=== PATIENT | male | born 1960 | race Caucasian/White ===

== ENCOUNTER 2017-02-01 09:35 | Observation (INO) | payer OTHER ==
[~2017-02-01] VITALS: Ht 175.3 cm; Wt 122.7 kg
[2017-02-01] VITALS (8 sets, daily range): BP systolic 102–124; BP diastolic 64–86; PULSE 77–89; RESP 15–22; O2SAT 91–97
--- NOTE | 2017-02-01 09:36 | ED.REPORT ---
HPI-Syncope Date of Service February 01, 2017 ED Provider: Dr. Syed 56 y/o male with a hx of nephritis presents to the ED via EMS due to a syncopal episode while at work today. Pt has been experiencing congestion at night for a few months. He reports productive cough with clear sputum, SOB and wheezing at night for a couple of days.The pt took Claritin and Mucinex which seemed to improve his sx until yesterday. Today, the pt lost consciousness after exerting himself today. His brother saw him faint and called the ambulance. The pt recalls feeling lightheaded and noted tachycardia before LOC. He denies chest pain and SOB. Currently, he feels okay but is experiencing generalized weakness and malaise. Nursing Notes Stated Complaint: SYNCOPE Chief Complaint: General Complaint Nursing Notes Reviewed: Yes Allergies: Coded Allergies: crab (Verified Allergy, Unknown, Rash,Itching,SOB, 02/01/17) shrimp (Verified Allergy, Unknown, Rash,Itching,SOB, 02/01/17) Scheduled Cholecalciferol (Vitamin D3) (Vitamin D3) 2,000 Unit Capsule 2,000 UNIT PO DAILY Latanoprost (Latanoprost) 2.5 Ml Drops 1 GTT BOTH_EYES HS Triamcinolone Acetonide (Nasacort) 10.8 Ml Harlan 10.8 ML NS DAILY General Time Seen by Provider: 09:36 Chief Complaint Lost consciousness Syncope Description: Single episode Hx Obtained From: Patient Arrived By: Ambulance Onset Occurred: Just prior to arrival Context of Onset: Occurred at work Symptom Duration: Since onset Severity: Current: No pain currently Severity: Maximum: No pain Recent Healthcare: No recent doctor visit Similar Sx Previous: No Past Medical History Past Medical History nephritis Past Surgical History none reported Smoking History Never Smoker Social History Alcohol Use: "Social" Drug Use: THC (occasional ) Other Social History: Good social support Ambulatory Status Independent Review of Systems Constitutional: Reports: Malaise, Weakness - generalized Respiratory: Reports: Prod cough, clear, Wheezing, Denies: Shortness of breath Cardiovascular: Reports: Palpitations, Denies: Chest pain Neurologic: Reports: Lightheaded, Syncope Complete sys rev & neg: except as marked. Additional Review of Systems Allergy / Immune: Reports: Rhinorrhea Physical Exam Initial Vital Signs Vital Signs (First) Date Time Temp Pulse Resp B/P Pulse Ox O2 Delivery O2 Flow Rate FiO2 5/7/17 09:34 36.4 77 18 104/64 91 Room Air Initial VS: Reviewed Head / Eyes: Atraumatic, Normocephalic, PERRL ENT: Mucous membranes moist, Conjunctiva normal, No scleral icterus Neck: Supple, Non-tender, Full range of motion Abdomen / GI: Soft, Non-tender, No guarding, No rebound, No distention Upper Extremities: Vascular intact, Neuro intact, No swelling, No tenderness Skin: Warm, Dry, No cyanosis General/Constitutional: Awake, Alert, No acute distress, Cooperative Appearance / Presentation: Positive: Obese Disheveled. Respiratory / Chest: Atraumatic, Breath sounds NL, Breath sounds = bilat, No respiratory distress, No rales, No rhonchi, No wheezing Cardiovascular: Heart rate NL, Regular rhythm, Heart sounds NL, No gallop, No murmurs Lower Extremity / Pelvis / MS: Atraumatic, Full range of motion Neurologic: Oriented X3, Speech NL, No motor deficits, No sensory deficits Interpretation & Diagnostics Lab Results Interpretation Result Diagram: 02/01/17 1015 02/01/17 1015 Test 02/01/17 10:15 White Blood Count 7.7th/mm3 (3.8-10.1) Red Blood Count 4.81mil/mm3 (4.40-5.80) Hemoglobin 16.0g/dL (13.8-17.2) Hematocrit 45.8% (41.0-50.0) Mean Corpuscular Volume 95.2fL (81-100) Mean Corpuscular Hemoglobin 33.3pg (27.0-35.0) Mean Corpuscular Hemoglobin Concent 34.9% (32.0-37.0) Red Cell Distribution Width 12.8% (12.3-15.4) Platelet Count 242bil/L (150-400) Neutrophils (%) (Auto) 75.5% (40-74) Lymphocytes (%) (Auto) 12.5% (14-46) Monocytes (%) (Auto) 11.1% (4-12) Eosinophils (%) (Auto) 0.4% (0-5) Basophils (%) (Auto) 0.4% (0-3) D-Dimer 0.63mg/L FEU (<0.50) Sodium Level 131mEq/L (134-144) Potassium Level 3.9mEq/L (3.5-5.2) Chloride Level 96mEq/L (97-108) Carbon Dioxide Level 16mmol/L (18-29) Blood Urea Nitrogen 19mg/dL (6-24) Creatinine 1.48mg/dL (0.76-1.27) Estimat Glomerular Filtration Rate 52mL/min (>59) Glucose Level 135mg/dL (60-99) Calcium Level 8.3mg/dL (8.5-10.1) Magnesium Level 1.9mg/dL (1.6-2.6) Total Bilirubin 0.2mg/dL (0.0-1.2) Aspartate Amino Transf (AST/SGOT) 25U/L (0-50) Alanine Aminotransferase (ALT/SGPT) 22U/L (0-44) Alkaline Phosphatase 76U/L (25-150) Troponin T 0.010ug/L (0.0-0.011) Pro-B-Type Natriuretic Peptide 137.1pg/mL (0-210) Total Protein 7.3g/dL (6.4-8.4) Albumin 3.8g/dL (3.4-5.0) Hold Burks Top Tube Received (Received) ECG Interpretation ECG Interpretation: Normal Sinus rhythm. Rate 79 Time: 09:45 Interpreted by: ED physician X-Ray Chest Interpretation Chest Xray Interpretation: IMPRESSION: No acute process. Dictated by: Dayana Damon M.D. on 02/01/2017 at 10:15 Approved by: Dayana Damon M.D. on 02/01/2017 at 10:16 View: Portable, 1 view Interpretation / Wet Read by: Interpret - Radiologist CT Head Interpretation IMPRESSION: No acute intracranial process. Sinusitis. Dictated by: Dayana Damon M.D. on 02/01/2017 at 12:01 Approved by: Dayana Damon M.D. on 02/01/2017 at 12:02 Study: Head CT no contrast Interpretation / Wet Read by: Interpret - Radiologist CT Chest Interpretation IMPRESSION: 1. No acute process. No pulmonary embolus. Dictated by: Dayana Damon M.D. on 02/01/2017 at 12:02 Approved by: Dayana Damon M.D. on 02/01/2017 at 12:04 Study type: Chest CT w contrast Interpretation / Wet Read by: Interpret - Radiologist Re-Eval/Medical Decision Med Decision/Clinical Course Discussed case with cardiology, the symptoms are concerning for some sort of a tachydysrhythmia that prompted syncope. Patient will be admitted for serial troponins and further observation. Re-Evaluation/Progress #1: Time of Eval: 12:15 Re-Evaluation/Progress Note: Rechecked pt. Pt reports some improvement. Informed the pt the plan to discuss his case with a medical claims representative. Re-Evaluation/Progress #2: Time of Eval: 13:03 Re-Evaluation/Progress Note: Rechecked pt. Discussed lab, imaging results and plan to admit. Pt understands and agrees with the plan for admission. All questions addressed. Consultation #1: Referral / Consult Name: Estephania Guerra MD Consulted With: Cardiology Call Returned at: 12:25 Bridge Gang Worker: Agrees with eval, Agrees with plan Consultation #2: Referral / Consult Name: Cinthia Wen DO Consulted With: Hospitalist Call Returned at: 13:42 Bridge Gang Worker: Will see patient, Agrees with eval, Agrees with plan, Accepts admit Counseled Regarding: Diagnosis, Lab results, Need for admission Discharge & Departure Impression: Primary Impression: Syncope Syncope type: unspecified Qualified Code: R55 - Syncope and collapse Disposition: ADMITTED TO HOSPITAL Discharge Condition All VS Reviewed: Yes Scribe Attestation Portions of this note were transcribed by Ivette Farley. I, , personally performed the history, physical exam and medical decision-making;I reviewed and confirmed the accuracy of the information in the transcribed note. Signed by Jah Barbosa. 02/01/17 01:42 Jamari Syed DO February 01, 2017 09:36 Ivette Farley February 01, 2017 09:50
[2017-02-01] MEDS ORDERED: 0.9% Sodium Chloride 1,000 ML IV ONE (09:52)
--- NOTE | 2017-02-01 10:18 | DRSVH ---
PROCEDURE: X-RAY CHEST ONE VIEW, PORTABLE ([id number]) INDICATIONS: sob, syncope TECHNIQUE: One view of the chest was acquired. COMPARISON: None. FINDINGS: Surgical changes and devices: None. Lungs and pleura: No pleural effusions or pneumothorax. Lungs are clear. Mediastinum: Mediastinal contours appear normal. Heart size is normal. Bones and chest wall: No suspicious bony lesions. Overlying soft tissues appear unremarkable. IMPRESSION: No acute process. Dictated by: Dayana Damon M.D. on 02/01/2017 at 10:15 Approved by: Dayana Damon M.D. on 02/01/2017 at 10:16
[2017-02-01 10:25] LABS: BASOPHILS % (AUTO) 0.4 % (0-3); EOSINOPHILS % (AUTO) 0.4 % (0-5); MONOCYTES % (AUTO) 11.1 % (4-12); Mean Corpuscular Hemoglobin 33.3 pg (27.0-35.0); Mean Corpuscular Volume 95.2 fL (81-100); NEUTROPHILS % (AUTO) 75.5 % (40-74); Platelet Count 242 bil/L (150-400)
[2017-02-01 10:55] LABS: TROPONIN T 0.01 ug/L (0.0-0.011)
[2017-02-01 11:06] LABS: Magnesium 1.9 mg/dL (1.6-2.6)
--- NOTE | 2017-02-01 12:03 | DRSVH ---
PROCEDURE: CT BRAIN WITHOUT CONTRAST ([id number]) INDICATIONS: syncope TECHNIQUE: Noncontrast 4.5 mm thick angled axial sections acquired from the foramen magnum to the vertex, with c oronal reformats. COMPARISON: None. FINDINGS: Image quality: Excellent. CSF spaces: Basal cisterns are patent. No extra-axial fluid collections. The ventricles are symmet brandin in size and shape. Brain: No intracranial bleeds or masses. There is cerebral volume loss for age, with resultant vent ricular and sulcal prominence. There are periventricular and deep white matter chronic small vessel ischemic changes. There is intracranial internal carotid artery atherosclerosis. Skull and face: Calvarium and visualized facial bones appear intact, without suspicious lesions. Sinuses: Severe right and moderate left maxillary sinus mucosal thickening. Severe bilateral ethmoid air cell mucosal thickening. Mastoids clear. IMPRESSION: No acute intracranial process. Sinusitis. Dictated by: Dayana Damon M.D. on 02/01/2017 at 12:01 Approved by: Dayana Damon M.D. on 02/01/2017 at 12:02
--- NOTE | 2017-02-01 12:05 | DRSVH ---
PROCEDURE: CT ANGIO CHEST PULMONARY EMBOLISM ([id number]) INDICATIONS: syncope elevated ddimer TECHNIQUE: After the administration of intravenous contrast, 2 mm thick sections acquired from the pulmonary api debo to the posterior costophrenic angles. 3-dimensional maximum intensity projection (MIP) coronal a nd sagittal reformats were then acquired through the thorax. For radiation dose reduction, the follo wing was used: automated exposure control, adjustment of mA and/or kV according to patient size. COMPARISON: None. FINDINGS: Image quality: Excellent. Pulmonary arteries: Pulmonary arteries are normal in size, and demonstrate no intraluminal filling d efects to suggest central pulmonary embolism. Lungs and pleura: Lungs are clear. No pleural effusions or pneumothorax. Central and peripheral ai rways are patent. Mediastinum: Heart size is normal, without pericardial effusion. No mediastinal or hilar adenopathy . Thoracic aorta is normal in caliber and enhancement. Esophagus is normal in caliber, without hiat al hernia. Bones and chest wall: No suspicious bony lesions. Ribs and thoracic spine appear intact throughout. Thyroid gland is within normal limits. No axillary or supraclavicular adenopathy. Abdomen: Visualized upper abdominal solid organs appear normal in the early arterial phase of enhanc ement. IMPRESSION: 1. No acute process. No pulmonary embolus. Dictated by: Dayana Damon M.D. on 02/01/2017 at 12:02 Approved by: Dayana Damon M.D. on 02/01/2017 at 12:04
[2017-02-01] MEDS ORDERED: TRIA10.8 NS (13:29)
[2017-02-01] MEDS ORDERED: LATA2.5D6 BOTH_EYES (13:29)
[2017-02-01] MEDS ORDERED: CHOL200047 PO (13:29)
[2017-02-01] MEDS ORDERED: Ondansetron 2 mg/mL 2 mL Inj IVPUSH PRN (13:55)
[2017-02-01] MEDS ORDERED: Alum-Mag Hydrox-Simeth 30 mL Suspension PO PRN (13:55)
[2017-02-01] MEDS ORDERED: Polyethylene Glycol (PEG) 17 Gm Powder PO PRN (13:55)
[2017-02-01] MEDS: 0.9% Sodium Chloride 1,000 ML IV SCH ×2 (16:13→23:54)
[2017-02-01 16:45] LABS: Creatine Kinase 146 U/L (21-232)
[2017-02-01 16:46] LABS: TROPONIN T < 0.010 ug/L (0.0-0.011)
[2017-02-01] MEDS: Heparin 5,000 Unit/mL Inj SUBQ SCH (17:05)
[2017-02-01] MEDS ORDERED: Codeine-guaiFENesin 10 mL Syrup PO PRN (18:10)
[2017-02-01] MEDS ORDERED: Albuterol 2.5 mg/3 mL Inhalation Solution NEB PRN (18:10)
[2017-02-01] MEDS: predniSONE 20 mg Tablet PO SCH (19:45)
[2017-02-01 23:02] LABS: Creatine Kinase 135 U/L (21-232)
[2017-02-02] VITALS (8 sets, daily range): BP systolic 125–143; BP diastolic 83–94; PULSE 68–84; RESP 15–20; O2SAT 93–95
--- NOTE | 2017-02-02 00:18 | PCM.HPMED ---
Subjective Date of Service February 02, 2017 Primary Provider: Admitting Physician: Cinthia Wen DO Primary Care Physician: Benita Mota MD Attending Physician: Cinthia Wen DO Admit Status: From the Emergency Department Chief Complaint: syncope, chest pain History of Present Illness: 56-year-old male with remote history of what sounds like glomerulonephritis syndrome that was diagnosed in 1996 for which she was treated with prednisone and Cytoxan, with a history of 20 years of no follow-up for preventive care from her PCP, is presenting to the ER following the syncopal event that happened at his brother's house. Patient states that for the last 2 days his been experiencing some chest pain/tightness, increased heart rate and some dyspnea. This a.m. however he felt just fine does was trying to work on the wooden floor and his brother's house when he was on the knees on the floor he suddenly lost consciousness for 10 seconds witnessed by his brother). He states that he has been having some sinus pain and coughing and wheezing for a couple days . Denies GI symptoms, fevers (though he feels he has had chills for about a week ), had some dizziness, cough . He states that he was not confused following this event, but did experience urinary incontinence. He denies previous episodes of syncopal events. He has not had seizures in the past. He was taking some Mucinex and nasacort for congestion. Off note he did start seeing a PCP Dr. Diana Pereira over at [facility] [address], she has done labs, ordered a colonoscopy. States that they removed some polyps and recommended a 3 year follow-up. He was not told of any concerning chronic conditions (?). In the ER, EKG was normal sinus rhythm had nonspecific changes. Sodium was 131 BUN 19 and creatinine was 1.[address] unknown baseline) CT of chest was negative for PE. Troponins were negative. Dr. Guerra from cardiology was consulted who recommended that patient be admitted for chest pain rule out with the plan that if that proves negative he will get a stress test. If the troponins are elevated, cardiology will schedule for a catheterization procedure tomorrow. Patient is given aspirin by mouth. D-dimer was elevated at 0.[address] of chest PE protocol was negative. CT of brain was also negative. By the time patient came to the ER computer is completely oriented without neurological deficits. Review of Systems: Gen.: No weight gain patient has been having chills, sinus pain and malaise Eyes: no visual disturbances or blurring vision HEENT: No nose/throat drainage, no pain in ears or throat, no hearing loss, positive for postnasal drainage Lymph: No lymph nodes noted Cardiac: Positive for chest pain, , palpitations , denies pedal edema but + dyspnea on exertion Pulmonary: wheezing or bringing up of sputum + worsening dyspnea and cough, left-sided chest pain GI: No anorexia nausea vomiting blood or black in the stool : no dysuria hematuria, positive for urinary frequency, negative for decrease in urine output Musculoskeletal: Joint swelling no joint pain no new muscle aches or back pain Neuro: no new focal weakness, numbness or tingling, syncopal event as above Psychiatric: New new anxiety insomnia or depression Endocrine: Positive for polyuria Hematology: No lymphadenopathy or easy bleeding or bruising noted skin: No new rashes, stasis dermatitis Allergies Coded Allergies: crab (Verified Allergy, Unknown, Rash,Itching,SOB, 02/01/17) shrimp (Verified Allergy, Unknown, Rash,Itching,SOB, 02/01/17) PMH Remote diagnosis of glomerulonephritis syndrome Surgical History Rhinoplasty, kidney biopsy, ear tubes, tonsillectomy Family History Mother: Breast cancer, volvulus, alive at 76 Data: at age 42 in a motor vehicle accident had asthma Social History Hx Alcohol Use: Yes Alcoholic Drinks Per Day: 2x per week Hx Substance Use: Yes (marijuana occasionally) Smoking Status: Never Smoker Living Arrangement: with Family (lives with mother, and never got and had children) Exam Vital Signs Vital Sign - Last Date Time Temp Pulse Resp B/P Pulse Ox O2 Delivery O2 Flow Rate FiO2 02/01/17 20:40 37.0 84 20 120/81 95 Nasal Cannula 2.00 Intake and Output 02/01/17 02/01/17 02/02/17 Cumulative From/Thru 15:00 23:00 07:00 02/01/17 09:34 - 02/01/17 19:47 Intake Total 720 ml 720 ml Balance 720 ml 720 ml Intake Oral 720 ml 720 ml # Voids 1 1 Exam General: NAD, laying in bed, HEENT: NCAT, poor dentition Eyes: Bessie conjunctivae. No ptosis, PERRL Neck: No masses, trachea midline, no thyromegaly Lungs: Positive for wheezing CV: RRR, no murmurs/rubs/gallops, GI: Soft, non-tender with no hepatosplenomegaly MSK: Normal gait and station, no digital cyanosis Skin: Warm and dry. No rash, lesions or ulcers Psych: A&O X3, with appropriate affect Neurological: CN II to 12 grossly normal gagging deferred. Patient is unable to perform finger to nose visual field exam, alternating hands. Withdraws to [facility] is Lab and Diagnostics Result Diagram: 02/01/17 1015 02/01/17 1015 X-Rays, CTs and MRIs PROCEDURE: CT BRAIN WITHOUT CONTRAST ([id number]) INDICATIONS: syncope IMPRESSION: No acute intracranial process. Sinusitis. Dictated by: Dayana Damon M.D. on 02/01/2017 at 12:01 Approved by: Dayana Damon M.D. on 02/01/2017 at 12:02 PROCEDURE: CT ANGIO CHEST PULMONARY EMBOLISM ([id number]) INDICATIONS: syncope elevated ddimer IMPRESSION: 1. No acute process. No pulmonary embolus Dictated by: Dayana Damon M.D. on 02/01/2017 at 12:02 Approved by: Dayana Damon M.D. on 02/01/2017 at 12:04 PROCEDURE: X-RAY CHEST ONE VIEW, PORTABLE ([id number]) IMPRESSION: No acute process Dictated by: Dayana Damon M.D. on 02/01/2017 at 10:15 Approved by: Dayana Damon M.D. on 02/01/2017 at 10:16 Assessment & Plan This is a 56-year-old male, who for the most part has been lost to follow-up presenting now with acute onset syncope associated with what appears to be cardiac symptoms i.e. chest pain, shortness of breath, elevated heart rate. He is here for a ACS rule out. CT scan showed sinusitis Assessment #1 syncope, present on admission: Cardio neurological, from infectious etiologies need to be. He has had no medication changes recently. He does smoke marijuana -- ACS rule out protocol with troponins, morphine, nitroglycerin. Stress test 5 /8 AM -- If troponins are elevated cancel his stress test and arrange for a catheterization -- Plan an exercise stress test otherwise -- Obtain patient recovers from [facility] [address], PCP: Dr. Benita Mota -- The neurological etiologies if cardiac etiology syndrome ruled out completely -- We will order echocardiogram -- Will order US Carotids Assessment #2 sinusitis and bronchitis, present on admission -- We will give doxycycline 100 mg by mouth twice a day, albuterol nebs, prednisone 20 mg by mouth twice a day, Flonase, Tessalon Perles, Robitussin Assessment #3 metabolic acidosis, present on admission: AG of 131-112=19 -- Likely due to CKD -- Gentle hydration with normal saline 100 mL/h -We will recheck CBC, comp in the a.m. - Assessment #4, renal dysfunction: Present on admission -- Unclear what his baseline is -- Request PCP records -- Gentle hydration with normal saline 100 mL/h -- We will order FENa labs CODE STATUS: Full code Alternate decision-maker: Mother Sandy [phone] Disposition: Patient may be discharged to home after cleared for cardio neurological syncope VTE Mechanical Devices: Intermittant Pneumatic CD Time spent 45 minutes Cinthia Wen DO February 02, 2017 00:18
[2017-02-02] MEDS: Heparin 5,000 Unit/mL Inj SUBQ SCH ×3 (00:32→17:12)
[2017-02-02 06:29] LABS: BASOPHILS % (AUTO) 0.3 % (0-3); EOSINOPHILS % (AUTO) 0 % (0-5); MONOCYTES % (AUTO) 17.8 % (4-12); Mean Corpuscular Hemoglobin 33.1 pg (27.0-35.0); Mean Corpuscular Volume 97.2 fL (81-100); NEUTROPHILS % (AUTO) 56.1 % (40-74); Platelet Count 262 bil/L (150-400)
[2017-02-02 08:43] LABS: APPEARANCE,URINE HAZY (CLEAR,HAZY); COLOR,URINE STRAW (YELLOW); OCCULT BLOOD,URINE TRACE (NEGATIVE); UROBILINOGEN,URINE NORMAL (NORMAL)
--- NOTE | 2017-02-02 09:02 | DRSVH ---
PROCEDURE: US BILATERAL DUPLEX DOPPLER IMAGING OF THE CAROTIDS ([id number]) INDICATIONS: syncope TECHNIQUE: Color and pulse Doppler interrogation was performed of both carotid systems, with image documentation and velocity measurements. COMPARISON: None. FINDINGS: All stenosis calculations are based on NASCET criteria. Right side: Brachial blood pressure: 125/85 mm Hg. Common Carotid Artery(Distal) PSV: 80.50 cm/s Internal Carotid Artery PSV- Proximal: 45.40 cm/s, 52.60 cm/s Mid-lon.90 cm/s Distal: 38.80 cm/s, 25.20 cm/s EDV - Proximal: 13 cm/s, 13.90 cm/s Mid-lon.30 cm/s Distal: 16.50 cm/s, 4.60 cm/s External Carotid Artery(Proximal) PSV: 101.20 cm/s ICA/CCA PSV ratio: 0.8 Gayle scale imaging description: Minimal plaque. Percent internal carotid artery stenosis: Less than 50%. Vertebral artery: Flow direction is antegrade. Left side: Brachial blood pressure: 125/85 mm Hg. Common Carotid Artery(Distal) PSV: 96.60 cm/s Internal Carotid Artery PSV - Proximal: 79.20 cm/s Mid-lon.60 cm/s Distal: 101.80 cm/s EDV - Proximal: 19.70 cm/s Mid-lon.10 cm/s Distal: 42.80 cm/s External Carotid Artery(Proximal) PSV: 109.90 cm/s ICA/CCA PSV ratio: 1.1 Gayle scale imaging description: Normal. Percent internal carotid artery stenosis: No stenosis.. Vertebral artery: Flow direction is antegrade. IMPRESSION: Less than 50% right internal carotid artery stenosis. Dictated by: Jose Maria KERR Interpreted: Viridiana Jon MD on 02/02/2017 at 9:01 Transcribed by: IVELISSE on 02/02/2017 at 9:02 Approved by: Viridiana Jon M.D. on 02/03/2017 at 17:11
[2017-02-02] MEDS: 0.9% Sodium Chloride 1,000 ML IV SCH ×2 (09:54→19:54)
[2017-02-02] MEDS: Fluticasone 0.05% 15 Spray/2 Gm 16 Gm Nasal Spray NASAL SCH ×2 (12:42→21:09)
[2017-02-02] MEDS: Amoxicillin-Clav 875-125 mg Tablet PO SCH ×2 (12:43→21:09)
[2017-02-02] MEDS: predniSONE 20 mg Tablet PO SCH ×2 (12:43→21:09)
--- NOTE | 2017-02-02 16:29 | PCM.PNMED ---
Subjective Date of Service February 02, 2017 Subjective Denies any lightheadedness or chest pain.Luiz resolved. Exam Vital Signs Vital Sign - Last Date Time Temp Pulse Resp B/P Pulse Ox O2 Delivery O2 Flow Rate FiO2 02/02/17 13:20 36.8 68 20 125/87 93 Room Air 02/02/17 09:45 2.00 Intake and Output 02/01/17 02/01/17 02/02/17 Cumulative From/Thru 15:00 23:00 07:00 02/01/17 09:34 - 02/01/17 19:47 Intake Total 720 ml 720 ml Balance 720 ml 720 ml Intake Oral 720 ml 720 ml # Voids 1 1 Exam General: NAD, laying in bed, HEENT: NCAT, poor dentition Eyes: Hilda conjunctivae. No ptosis, PERRL Neck: No masses, trachea midline, no thyromegaly Lungs: Positive for wheezing CV: RRR, no murmurs/rubs/gallops, GI: Soft, non-tender with no hepatosplenomegaly MSK: Normal gait and station, no digital cyanosis Skin: Warm and dry. No rash, lesions or ulcers Psych: A&O X3, with appropriate affect Neurological: CN II to 12 grossly normal IVs and Medications Medications Reviewed: Medications were reviewed in detail Lab and Diagnostics Result Diagram: 02/02/17 0543 02/02/17 1330 X-Rays, CTs and MRIs PROCEDURE: CT BRAIN WITHOUT CONTRAST ([id number]) INDICATIONS: syncope IMPRESSION: No acute intracranial process. Sinusitis. Dictated by: Dayana Damon M.D. on 02/01/2017 at 12:01 Approved by: Dayana Damon M.D. on 02/01/2017 at 12:02 PROCEDURE: CT ANGIO CHEST PULMONARY EMBOLISM ([id number]) INDICATIONS: syncope elevated ddimer IMPRESSION: 1. No acute process. No pulmonary embolus Dictated by: Dayana Damon M.D. on 02/01/2017 at 12:02 Approved by: Dayana Damon M.D. on 02/01/2017 at 12:04 PROCEDURE: X-RAY CHEST ONE VIEW, PORTABLE ([id number]) IMPRESSION: No acute process Dictated by: Dayana Damon M.D. on 02/01/2017 at 10:15 Approved by: Dayana Damon M.D. on 02/01/2017 at 10:16 Assessment & Plan This is a 56-year-old male, who for the most part has been lost to follow-up presenting now with acute onset syncope associated with what appears to be cardiac symptoms i.e. chest pain, shortness of breath, elevated heart rate. He is here for a ACS rule out. CT scan showed sinusitis #1 syncope, present on admission: -Patient states he has been having symptoms of URI for few days. Nasal swab Influenza A3 positive. Syncope likely due to dehydration due to influenza -- ACS rule out protocol with troponins, morphine, nitroglycerin. Stress test -- Echocardiogram and stress test results pending -- US Carotids normal #2 influenza URI, present on admission -- Initially started doxycycline 100 mg by mouth twice a day, albuterol nebs, prednisone 20 mg by mouth twice a day, Flonase, Tessalon Perles, Robitussin -- We will discontinue doxycycline and prednisone #3 metabolic acidosis, present on admission: AG of 131-112=19, resolved -Due to dehydration -- Gentle hydration with normal saline 100 mL/h #4, renal dysfunction: Present on admission, resolved -Due to dehydration -- Gentle hydration with normal saline 100 mL/h -- We will order FENa labs CODE STATUS: Full code Alternate decision-maker: Mother Sandy [phone] Disposition: Possible discharge tomorrow if continues to improve VTE Mechanical Devices: Intermittant Pneumatic CD Jimmy Barnes MD February 02, 2017 16:29
[2017-02-03] MEDS: Heparin 5,000 Unit/mL Inj SUBQ SCH ×2 (00:50→10:07)
[2017-02-03] MEDS: 0.9% Sodium Chloride 1,000 ML IV SCH (06:00)
[2017-02-03 06:24] VITALS: BP 134/94; PULSE 73; RESP 18; O2SAT 92
[2017-02-03 09:02] LABS: BASOPHILS % (AUTO) 0.7 % (0-3); EOSINOPHILS % (AUTO) 0 % (0-5); MONOCYTES % (AUTO) 16.5 % (4-12); Mean Corpuscular Hemoglobin 32.2 pg (27.0-35.0); Mean Corpuscular Volume 94.6 fL (81-100); NEUTROPHILS % (AUTO) 41.6 % (40-74); Platelet Count 267 bil/L (150-400)
[2017-02-03] MEDS: Amoxicillin-Clav 875-125 mg Tablet PO SCH (10:03)
[2017-02-03] MEDS: Fluticasone 0.05% 15 Spray/2 Gm 16 Gm Nasal Spray NASAL SCH (10:03)
[2017-02-03] MEDS: predniSONE 20 mg Tablet PO SCH (10:03)
--- NOTE | 2017-02-03 11:32 | PCM.DIMED ---
Discharge Instructions Date of Service February 03, 2017 Dates of Hospitalization February 01, 2017 at 14:29 Discharge Diagnosis Discharge Diagnosis #1 syncope due to dehydration due to influenza, present on admission: #2 influenza URI, present on admission #3, renal dysfunction: Present on admission, resolved Test Results Normal stress test Diet Low fat, Low Sodium Activity Limited until seen by PCP Call your provider Fever or Chills, Shortness of breath, Bleeding, Chest pain, Vomitting, Excessive diarrhea, Weakness (unilateral) Patient Instructions You were hospitalized due to syncope. Syncope seems to be due to dehydration due to influenza URI. Please continue Tamiflu for 4 more days. Please keep yourself hydrated. Please follow-up with PCP in 1 week. Follow-up plan Please follow-up with PCP in 1 week. Follow-up Provider: Benita Mota MD Follow-up with PCP in: 1 week Jimmy Barnes MD February 03, 2017 11:32
[2017-02-03] MEDS ORDERED: OSLT75C PO (11:33)
[2017-02-03] MEDS ORDERED: BENZ100C8 PO (11:33)
--- NOTE | 2017-02-03 11:49 | PCM.DC.MED ---
Discharge Summary Date of Service February 03, 2017 Dates of Hospitalization Date of Hospital Admission February 01, 2017 at 14:29 Date of Discharge: February 03, 2017 Providers: Admitting Physician: Cinthia Wen DO Primary Care Physician: Benita Mota MD Attending Physician: Cinthia Wen DO Diagnosis at Time of Discharge Diagnosis at Time of Discharge #1 syncope due to dehydration due to influenza, present on admission: #2 influenza URI, present on admission #3, renal dysfunction: Present on admission, resolved Consultations none Procedures XRay, CTs & MRIs PROCEDURE: CT BRAIN WITHOUT CONTRAST ([id number]) INDICATIONS: syncope IMPRESSION: No acute intracranial process. Sinusitis. Dictated by: Dayana Damon M.D. on 02/01/2017 at 12:01 Approved by: Dayana Damon M.D. on 02/01/2017 at 12:02 PROCEDURE: CT ANGIO CHEST PULMONARY EMBOLISM ([id number]) INDICATIONS: syncope elevated ddimer IMPRESSION: 1. No acute process. No pulmonary embolus Dictated by: Dayana Damon M.D. on 02/01/2017 at 12:02 Approved by: Dayana Damon M.D. on 02/01/2017 at 12:04 PROCEDURE: X-RAY CHEST ONE VIEW, PORTABLE ([id number]) IMPRESSION: No acute process Dictated by: Dayana Damon M.D. on 02/01/2017 at 10:15 Approved by: Dayana Damon M.D. on 02/01/2017 at 10:16 Other Diagnostics normal stress test Brief History per HPI by Dr Wen 56-year-old male with remote history of what sounds like glomerulonephritis syndrome that was diagnosed in 1996 for which she was treated with prednisone and Cytoxan, with a history of 20 years of no follow-up for preventive care from her PCP, is presenting to the ER following the syncopal event that happened at his brother's house. Patient states that for the last 2 days his been experiencing some chest pain/tightness, increased heart rate and some dyspnea. This a.m. however he felt just fine does was trying to work on the wooden floor and his brother's house when he was on the knees on the floor he suddenly lost consciousness for 10 seconds witnessed by his brother). He states that he has been having some sinus pain and coughing and wheezing for a couple days . Denies GI symptoms, fevers (though he feels he has had chills for about a week ), had some dizziness, cough . He states that he was not confused following this event, but did experience urinary incontinence. He denies previous episodes of syncopal events. He has not had seizures in the past. He was taking some Mucinex and nasacort for congestion. Off note he did start seeing a PCP Dr. Diana Pereira over at [facility], she has done labs, ordered a colonoscopy. States that they removed some polyps and recommended a 3 year follow-up. He was not told of any concerning chronic conditions (?). In the ER, EKG was normal sinus rhythm had nonspecific changes. Sodium was 131 BUN 19 and creatinine was 1.48 unknown baseline) CT of chest was negative for PE. Troponins were negative. Dr. Guerra from cardiology was consulted who recommended that patient be admitted for chest pain rule out with the plan that if that proves negative he will get a stress test. If the troponins are elevated, cardiology will schedule for a catheterization procedure tomorrow. Patient is given aspirin by mouth. D-dimer was elevated at 0.[address] of chest PE protocol was negative. CT of brain was also negative. By the time patient came to the ER computer is completely oriented without neurological deficits. Hospital Course This is a 56-year-old male, who for the most part has been lost to follow-up presenting now with acute onset syncope associated with what appears to be cardiac symptoms i.e. chest pain, shortness of breath, elevated heart rate. He is here for a ACS rule out. CT scan showed sinusitis #1 syncope, present on admission: -Patient states he has been having symptoms of URI for few days. Nasal swab Influenza A3 positive. Syncope likely due to dehydration due to influenza -- ACS ruled out -- stress test normal -- US Carotids normal #2 influenza URI, present on admission -- Initially started doxycycline 100 mg by mouth twice a day, albuterol nebs, prednisone 20 mg by mouth twice a day, Flonase, Tessalon Perles, Robitussin -- discontinued doxycycline and prednisone #3 metabolic acidosis, present on admission: AG of 131-112=19, resolved -Due to dehydration -- Treated with Gentle hydration with normal saline 100 mL/h #4, renal dysfunction: Present on admission, resolved -Due to dehydration -- Treated with Gentle hydration with normal saline 100 mL/h CODE STATUS: Full code Alternate decision-maker: Mother Sandy [phone] Disposition: Discharged home, Condition on discharge stable Exam Vital Signs (Last) Date Time Temp Pulse Resp B/P Pulse Ox O2 Delivery O2 Flow Rate FiO2 02/03/17 06:24 36.4 73 18 134/94 92 Room Air 02/02/17 09:45 2.00 Exam General: NAD, laying in bed, HEENT: NCAT, poor dentition Eyes: [place] conjunctivae. No ptosis, PERRL Neck: No masses, trachea midline, no thyromegaly Lungs: Positive for wheezing CV: RRR, no murmurs/rubs/gallops, GI: Soft, non-tender with no hepatosplenomegaly MSK: Normal gait and station, no digital cyanosis Skin: Warm and dry. No rash, lesions or ulcers Psych: A&O X3, with appropriate affect Neurological: CN II to 12 grossly normal Test 02/01/17 10:15 02/01/17 22:20 02/02/17 05:43 02/02/17 08:00 D-Dimer 0.63mg/L FEU (<0.50) Hemoglobin A1c 5.5% (4.8-5.6) Magnesium Level 1.9mg/dL (1.6-2.6) Pro-B-Type Natriuretic Peptide 137.1pg/mL (0-210) Hold Burks Top Tube Received (Received) Total Creatine Kinase 135U/L (21-232) Creatine Kinase MB 2.4ng/mL (0.0-10.4) Creatine Kinase MB % % (0.0-5.0) Troponin T 0.010ug/L (0.0-0.011) Triglycerides Level 84mg/dL (0-149) Cholesterol Level 124mg/dL (100-199) LDL Cholesterol, Calculated 74.200mg/dL (0-99) VLDL Cholesterol 16.800mg/dL HDL Cholesterol 33mg/dL (>39) Cholesterol/HDL Ratio 3.76 (0.0-4.4) Urine Color Straw (YELLOW) Urine Appearance Hazy (CLEAR,HAZY) Urine pH 6.0 (5.0-8.0) Urine Specific [place] 1.020 (1.003-1.035) Urine Protein Negativemg/dL (NEG,TRACE) Urine Glucose (UA) Negativemg/dL (NEGATIVE) Urine Ketones Tracemg/dL (NEGATIVE) Urine Occult Blood Trace (NEGATIVE) Urine Nitrite Negative (NEGATIVE) Urine Bilirubin Negative (NEGATIVE) Urine Urobilinogen Normalmg/dL (NORMAL) Urine Leukocyte Esterase Negative (NEGATIVE) Urine RBC 0-2/hpf (0-2) Urine WBC 0-5/hpf (0-5) Urine Epithelial Cells Occasional/hpf (NONE-MOD) Urine Crystals None seen (NONE SEEN) Urine Bacteria None/hpf (NONE-FEW) Urine Hyaline Casts None/lpf (NONE) Urine Granular Casts None seen (NONE SEEN) Urine Waxy Casts None seen (NONE SEEN) Urine Red Blood Cell Casts None seen (NONE SEEN) Urine White Blood Cell Casts None seen (NONE SEEN) Urine Mucus Present (None Seen) Urine Trichomonas None seen (NONE SEEN) Urine Yeast None (NONE SEEN) Urinalysis Comment None Urine Culture Reflexed Not indicated Urine Random Creatinine 150mg/dL (22-328) Urine Random Sodium 44mEq/L Test 02/03/17 08:40 White Blood Count 4.2th/mm3 (3.8-10.1) Red Blood Count 5.16mil/mm3 (4.40-5.80) Hemoglobin 16.6g/dL (13.8-17.2) Hematocrit 48.8% (41.0-50.0) Mean Corpuscular Volume 94.6fL (81-100) Mean Corpuscular Hemoglobin 32.2pg (27.0-35.0) Mean Corpuscular Hemoglobin Concent 34.0% (32.0-37.0) Red Cell Distribution Width 12.9% (12.3-15.4) Platelet Count 267bil/L (150-400) Neutrophils (%) (Auto) 41.6% (40-74) Lymphocytes (%) (Auto) 41.0% (14-46) Monocytes (%) (Auto) 16.5% (4-12) Eosinophils (%) (Auto) 0% (0-5) Basophils (%) (Auto) 0.7% (0-3) Sodium Level 139mEq/L (134-144) Potassium Level 4.2mEq/L (3.5-5.2) Chloride Level 100mEq/L (97-108) Carbon Dioxide Level 24mmol/L (18-29) Blood Urea Nitrogen 14mg/dL (6-24) Creatinine 0.80mg/dL (0.76-1.27) Estimat Glomerular Filtration Rate 106mL/min (>59) Glucose Level 103mg/dL (60-99) Calcium Level 9.0mg/dL (8.5-10.1) Total Bilirubin 0.2mg/dL (0.0-1.2) Aspartate Amino Transf (AST/SGOT) 28U/L (0-50) Alanine Aminotransferase (ALT/SGPT) 33U/L (0-44) Alkaline Phosphatase 77U/L (25-150) Total Protein 7.0g/dL (6.4-8.4) Albumin 4.0g/dL (3.4-5.0) Discharge Medications Discharge Medications Cholecalciferol (Vitamin D3) (Vitamin D3) 2,000 Unit Capsule 2,000 UNIT PO DAILY (Reported) Latanoprost (Latanoprost) 2.5 Ml Drops 1 GTT BOTH_EYES HS (Reported) Oseltamivir Phosphate (Tamiflu) 10 Cap/Pkg Capsule 75 MG PO BID Prescribed by: NAINA CARRASCO MD Triamcinolone Acetonide (Nasacort) 10.8 Ml [place] 10.8 ML NS DAILY (Reported) As needed Benzonatate (Benzonatate) 100 Mg Capsule 100 MG PO TID PRN PRN For Cough Prescribed by: NAINA CARRASCO MD Followup Plan Disposition: Home Follow-up plan Please follow-up with PCP in 1 week. Discharge Diet: Low fat, Low Sodium Discharge Activity: Limited until seen by PCP Patient Instructions You were hospitalized due to syncope. Syncope seems to be due to dehydration due to influenza URI. Please continue Tamiflu for 4 more days. Please keep yourself hydrated. Please follow-up with PCP in 1 week. Follow-up Provider: Benita Mota MD Follow-up with PCP in: 1 week copies to: Benita Mota MD, Melaku MD February 03, 2017 11:49
--- NOTE | 2017-02-03 13:12 | DRSVH ---
PROCEDURE: 2 DAY STRESS TEST INDICATIONS: THE PATIENT IS A 56-YEAR-OLD MALE ADMITTED TO [facility] WITH AN EPISODE OF SYNCOPE AND CHEST DISCOMFORT. NUCLEAR CARDIAC STRESS STUDY IS PERFORMED TO EXCLUDE SIGNIFICANT UNDE RLYING ISCHEMIC HEART DISEASE. COMPARISON: None. STRESS TEST: This patient was exercised initially on a El protocol; however, exercise was discont inued after 1 minute and 34 seconds because of left foot and ankle pain and symptoms of dyspnea. He was switched to a pharmacologic study with Lexiscan and tolerated the Lexiscan injection well. He bourgeois d transient sinus bradycardia following Lexiscan but had no symptoms of chest pain and no diagnostic EKG changes of ischemia. PROCEDURE: This patient received 22.1 millicuries of technetium-99m tetrofosmin for the stress porti on of the examination and he returned one day later for the resting portion of the examination receiv ing an additional 21.6 millicuries. FINDINGS: Raw data: Raw data images demonstrate overall good image quality. No significant source of artifact or interference noted. Quantitative gated SPECT imaging: Gated images show a normal-sized ventricle with an end-diastolic v olume of 98 cc. The estimated ejection fraction is 68% with no regional wall motion abnormalities no lali. Quantitative perfusion SPECT imaging: Myocardial perfusion imaging shows a subtle amount of diaphrag matic attenuation. There are no perfusion abnormalities identified that would suggest ischemia or sc ar. IMPRESSION: 1. Normal nuclear cardiac stress study. DISCUSSION: Nuclear cardiac stress study suggests low likelihood for the presence of significant und erlying obstructive coronary artery disease. Dictated by: Josesito Murphy M.D. on 02/03/2017 at 11:27 Transcribed by: JUAN on 02/03/2017 at 16:12 Approved by: Josesito Murphy M.D. on 02/03/2017 at 16:48
== END 2017-02-03 13:20 | disposition home or self-care (01) ==
LOC: EDBD 09:35 → SED 09:35 → OSC 14:29
PROVIDERS: ADMIT Family Medicine; ATTEND Family Medicine
DX: J10.1 Influenza due to other identified influenza virus with other respiratory manifestations (principal); R55 Syncope and collapse; E86.0 Dehydration; E87.2 Acidosis; N05.9 Unspecified nephritic syndrome with unspecified morphologic changes; F12.90 Cannabis use, unspecified, uncomplicated; Z91.013 Allergy to seafood; Z86.010 Personal history of colon polyps
CPT/HCPCS: 36415; 70450; 71010; 71275; 78452; 80053; 80061; 81000; 82550; 82553; 82570; 83036; 83735; 83880; 84132; 84300; 84484; 85025; 85378; 87633; 93005; 93017; 93880; 94799; 99285; A9502; G0378; J1644; J2785; J7030; Q9967